=== PATIENT | female | born 1970 | race Caucasian/White ===

== ENCOUNTER 2018-10-19 11:59 | Observation (INO) | payer OTHER ==
[~2018-10-19] VITALS: Ht 167.6 cm; Wt 71.0 kg
[2018-10-19] MEDS ORDERED: KETOROLAC 15 MG/ML VIAL IVP ONE (12:00)
[2018-10-19] MEDS ORDERED: DIPHTH/TETANUS/ACEL. PERTUSSIS IM ONLY ONE ×2 (12:00→12:16)
[2018-10-19] MEDS ORDERED: L-NO1TBD6 PO (12:04)
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
[2018-10-19] MEDS ORDERED: IOPAMIDOL 76% 100 ML INFUS BTL 100 ML ONE (12:46)
[2018-10-19 12:55] LABS: PLATELET COUNT, AUTOMATED 259 K/uL (150-450)
[2018-10-19] MEDS ORDERED: HYDROmorphone HCL 2 MG/ML SDV IVP PRN (13:20)
[2018-10-19] MEDS ORDERED: ACETAMINOPHEN 325 MG TAB PO PRN (13:20)
[2018-10-19] MEDS ORDERED: EMS NS 0.9%(*) 1000 ML BAG 1,000 ML IV ONE (13:50)
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
--- NOTE | 2018-10-19 14:17 | RADIOLOGY IMAGING REPORT ---
FACILITY: [facility] PATIENT NAME: Jenifer Martinez : 1970 MR: [id number] V: [id number] EXAM DATE: ORDERING PHYSICIAN: ELDON BARBOSA TECHNOLOGIST: [place] [facility] [place] [place]: [place] : 1970 Visit/Account:[id number] Date of Sevice: 10/19/2018 CT VERTEBRA CERVICAL (NON CON) HISTORY: Trauma COMPARISON STUDIES: none TECHNIQUE: Axial images were obtained from the skull base through the upper thoracic spine without i ntravenous contrast. Coronal and sagittal reformatted images were obtained from the axial source data . One of the following dose optimization techniques was utilized in the performance of this exam: Autom ated exposure control; adjustment of the mA and/or kV according to the patient's size; or use of an i terative reconstruction technique. Specific details can be referenced in the facility's radiology C T exam operational policy. FINDINGS: There is no acute fracture of cervical spine. AP and facet alignment is appropriate. Very mild dege nerative changes are noted posteriorly C5-6. Lucency in the C5 vertebral body is well-circumscribed and likely benign. The right facial fractures are described separately. Lung apices are unremarkable. IMPRESSION: 1. No evidence for an acute fracture of the cervical spine. 2. The right-sided facial fractures are described separately. Results were called to Claudia Jefferson at 10/19/2018 2:12 PM. Report Dictated By: Ward Collier MD at 10/19/2018 1:42 PM Report E-Signed By: Ward Collier MD at 10/19/2018 2:12 PM WSN:[email or web address]
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
[2018-10-19 15:24] VITALS: BP 150/79
[2018-10-19] MEDS: KCL/D1/2NS 20 MEQ 1000 ML 1,000 ML IV PRN (18:03)
[2018-10-19] MEDS: APAP/HYDROCODONE 325/5 TAB PO PRN (18:13)
[2018-10-19 19:34] VITALS: BP 145/70
[2018-10-19 22:52] VITALS: BP 148/82
[2018-10-20 01:24] VITALS: BP 121/63
[2018-10-20] MEDS: KCL/D1/2NS 20 MEQ 1000 ML 1,000 ML IV PRN ×2 (03:17→14:58)
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
[2018-10-20 06:15] LABS: PLATELET COUNT, AUTOMATED 247 K/uL (150-450)
[2018-10-20 07:16] VITALS: BP 124/69
--- NOTE | 2018-10-20 07:58 | General Surgery Progress Note ---
Subjective Progress Notes Subjective two small emesis overnight, denies new areas of pain, her family has arrived from [facility] Physical Exam Vital Signs Date Time Temp Pulse Resp B/P (MAP) Pulse Ox O2 Delivery O2 Flow Rate FiO2 10/20/18 07:16 98 Room Air 10/20/18 07:16 97.9 101 16 124/69 (87) Intake and Output 10/20/18 07:00 Intake Total 2660 ml Output Total 300 ml Balance 2360 ml Intake Oral 320 ml IV Total 2340 ml Output Emesis 300 ml # Voids 3 General Appearance: Alert, Awake, No Acute Distress, Afebrile Neuro: No Gross deficits, Other (GCS 15) Eyes: PERRLA, Other (OD periorbital edema and ecchymosis, EOMI, VA intact and normal) Cardiovascular: Normal Rhythm & Peripheral Pulses, Regular Rate and Rhythm, No JVD Respiratory: No Respiratory Distress, Clear to Auscultation GI: Soft and Non-Tender, Other (no peritoneal s/s) Musculoskeletal: No Weakness/Pain Integumentary: Skin Intact without Lesion / Mass Psych: Alert & Oriented X3, Appropriate Mood & Affect Result Diagram: 10/20/1849 10/20/1849 Monitor Interpretation: Normal Sinus Rhythm Assessment and Plan Problems: (1) Facial fracture Status: Acute Assessment & Plan: Will need to see Facial trauma ENT surgeon as an outpt. Lacerations will be cleaned and closed in ER. Tetanus updated. 10/20/18: Stable, remains neurologically intact and hemodynamically stable. Will need to see Dr Andres in [facility] for ENT Facial trauma, discussed with loss prevention analyst ENT surgeon Dr South ENT loss prevention analyst at the [facility]. (2) Grief Status: Acute Assessment & Plan: Pt requests a Environmental Geologist to assist with calling family members. Environmental Geologist is at the bedside. Pt will be admitted for observation until family members able to come here for her. (3) Nausea & vomiting Status: Acute Assessment & Plan: Etiology likely multifactorial. Will ADAT slowly. ABD exam remains benign and admission ABD CT scan normal. Cont IVF and close observation. Time Spent: > 30 min Critical Time Spent: 1st 30-74 Minutes Exam Sepsis Risk: No Definite Risk Problem Qualifiers (1) Facial fracture: Encounter type: initial encounter Facial bone/location: unspecified site of maxillary bone Fracture type: closed Laterality: right Qualified Codes: S02.40CA - Maxillary fracture, right side, initial encounter for closed fracture ELDON BARBOSA MD Oct 20, 2018 07:58
[2018-10-20] MEDS: ONDANSETRON 4 MG/2 ML VIAL IVP PRN ×2 (08:55→14:59)
[2018-10-20] MEDS: APAP/HYDROCODONE 325/5 TAB PO PRN (10:10)
[2018-10-20 11:18] VITALS: BP 132/72
[2018-10-20 12:07] VITALS: Ht 167.6 cm; Wt 71.0 kg
[2018-10-20] MEDS ORDERED: IOPAMIDOL 76% 100 ML INFUS BTL 100 ML ONE (14:54)
[2018-10-20 15:13] VITALS: BP 126/71
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
--- NOTE | 2018-10-20 17:06 | General Surgery Progress Note ---
Subjective Progress Notes Subjective several small emesis throughout the day. No complaints of pain. No FCS. Physical Exam Vital Signs Date Time Temp Pulse Resp B/P (MAP) Pulse Ox O2 Delivery O2 Flow Rate FiO2 10/20/18 15:13 98.0 91 18 126/71 (89) 99 Room Air Intake and Output 10/20/18 07:00 Intake Total 2660 ml Output Total 300 ml Balance 2360 ml Intake Oral 320 ml IV Total 2340 ml Output Emesis 300 ml # Voids 3 # Bowel Movements 1 General Appearance: Alert, Awake, No Acute Distress GI: Soft and Non-Tender, Other (non-distended and no peritoneal s/s) Result Diagram: 10/20/18 0549 10/20/18 0549 Monitor Interpretation: Normal Sinus Rhythm Assessment and Plan Problems: (1) Facial fracture Status: Acute Assessment & Plan: Will need to see Facial trauma ENT surgeon as an outpt. Lacerations will be cleaned and closed in ER. Tetanus updated. 10/20/18: Stable, remains neurologically intact and hemodynamically stable. Will need to see Dr Andres in [facility] for ENT Facial trauma, discussed with suggestion clerk ENT surgeon Dr South ENT suggestion clerk at the [facility]. (2) Grief Status: Acute Assessment & Plan: Pt requests a Coat Baster to assist with calling family members. Coat Baster is at the bedside. Pt will be admitted for observation until family members able to come here for her. (3) Nausea & vomiting Status: Acute Assessment & Plan: Etiology likely multifactorial. Will ADAT slowly. ABD exam remains benign and admission ABD CT scan normal. Cont IVF and close observation. 10/20/18 1700: ABD remains benign, Lipase/labs normal. Repeat ABD CT negative. Follow closely. Exam Sepsis Risk: No Definite Risk Problem Qualifiers (1) Facial fracture: Encounter type: initial encounter Facial bone/location: unspecified site of maxillary bone Fracture type: closed Laterality: right Qualified Codes: S02.40CA - Maxillary fracture, right side, initial encounter for closed fracture ELDON BARBOSA MD Oct 20, 2018 17:06
[2018-10-20] MEDS: PROMETHAZINE 25 MG/ML 1 ML AMP IVP PRN (19:14)
[2018-10-20 19:42] VITALS: BP 129/66
[2018-10-20 22:35] VITALS: BP 112/58
[2018-10-21] MEDS: KCL/D1/2NS 20 MEQ 1000 ML 1,000 ML IV PRN (00:15)
[2018-10-21 02:37] VITALS: BP 143/71
[2018-10-21] MEDS ORDERED: LOR5/325 PO (07:47)
[2018-10-21] MEDS ORDERED: ONDA4TAB9 PO (07:48)
--- NOTE | 2018-10-21 07:51 | Hospitalist Depart ---
Discharge Summary Reason for Hosp/Final Diag: (1) Facial fracture Status: Acute Hospital Course & Plan: Will need to see Facial trauma ENT surgeon as an outpt. Lacerations will be cleaned and closed in ER. Tetanus updated. 10/20/18: Stable, remains neurologically intact and hemodynamically stable. Will need to see Dr Andres in [facility] for ENT Facial trauma, discussed with community organization director ENT surgeon Dr South ENT community organization director at the [facility]. 10/21/18: stable progress, outpt follow up as outlined above. (2) Grief Status: Acute Hospital Course & Plan: Pt requests a Iron Miner to assist with calling family members. Iron Miner is at the bedside. Pt will be admitted for observation until family members able to come here for her. 10/21/18: pt with machine assembler information. (3) Nausea & vomiting Status: Acute Hospital Course & Plan: Etiology likely multifactorial. Will ADAT slowly. ABD exam remains benign and admission ABD CT scan normal. Cont IVF and close observation. 10/20/18 1700: ABD remains benign, Lipase/labs normal. Repeat ABD CT negative. Follow closely. 10/21/18: repeat ABD CT negative. NV resolved overnight. Will continue soft diet as vicki. Departure Weight (Pounds): 156 Weight (Ounces): 10.0 Result Diagram: 10/21/1852310/21/18523 Condition: Improved Time Spent: > 30 min Discharge Instructions Home Meds Active Scripts Ondansetron 4 Mg Odt (ONDANSETRON 4 MG ODT) 4 Mg Tab.rapdis, 4 MG PO ONCE for 7 Days, #10 TAB Prov:ELDON BARBOSA MD 10/21/18 Hydrocodone Bit/Acetaminophen (HYDROCODON-ACETAMINOPHEN 5-325) 1 Each Tablet, 1- 2 EACH PO q6 PRN for MODERATE PAIN for 7 Days, #20 CAP Prov:ELDON BARBOSA MD 10/21/18 Reported Medications F-Sfxpeqn-Wia Estr/Ethin Estra (SEASONIQUE 0.15-0.03-0.01 TAB) 1 Each Tbdspk.3mo, 1 EACH PO QDAY 10/19/18 Venous Thromboembolism Antithrombotics Is Pt On Any Antithrombotics?: No Problem Qualifiers (1) Facial fracture: Encounter type: initial encounter Facial bone/location: unspecified site of maxillary bone Fracture type: closed Laterality: right Qualified Codes: S02.40CA - Maxillary fracture, right side, initial encounter for closed fracture ELDON BARBOSA MD Oct 21, 2018 07:51
--- NOTE | 2018-10-21 07:53 | General Surgery Progress Note ---
Subjective Progress Notes Subjective feels better, wants to go home with parents. Physical Exam Vital Signs Date Time Temp Pulse Resp B/P (MAP) Pulse Ox O2 Delivery O2 Flow Rate FiO2 10/21/18 02:37 98.9 105 16 143/71 (95) 95 Room Air Intake and Output 10/21/18 06:59 Intake Total 2185 ml Output Total 175 ml Balance 2010 ml Intake Oral 520 ml IV Total 1665 ml Output Emesis 175 ml # Voids 6 # Bowel Movements 1 # Emeses 2 General Appearance: Alert, Awake, No Acute Distress Neuro: No Gross deficits, Other (GCS 15, face symmetrical) Eyes: Other (OU ecchymosis, VA normal, EOMI full) Cardiovascular: Normal Rhythm & Peripheral Pulses, Regular Rate and Rhythm, No Edema, No JVD Respiratory: No Respiratory Distress, Clear to Auscultation Chest: No Masses GI: Soft and Non-Tender Musculoskeletal: No Weakness/Pain Extremities: Soft and Non Tender, Warm, Pulses, Perfused Integumentary: Skin Intact without Lesion / Mass Psych: Alert & Oriented X3, Appropriate Mood & Affect Result Diagram: 10/21/1852310/21/18523 Monitor Interpretation: Normal Sinus Rhythm Assessment and Plan Problems: (1) Facial fracture Status: Acute Assessment & Plan: Will need to see Facial trauma ENT surgeon as an outpt. L acerations will be cleaned and closed in ER. Tetanus updated. 10/20/18: Stable, remains neurologically intact and hemodynamically stable. Will need to see Dr Andres in [facility] for ENT Facial trauma, discussed with motion picture director ENT surgeon Dr South ENT motion picture director at the [facility]. 10/21/18: stable progress, outpt follow up as outlined above. (2) Grief Status: Acute Assessment & Plan: Pt requests a Director Airport Operations to assist with calling family members. Director Airport Operations is at the bedside. Pt will be admitted for observation until family members able to come here for her. 10/21/18: pt with table inspector information. (3) Nausea & vomiting Status: Acute Assessment & Plan: Etiology likely multifactorial. Will ADAT slowly. ABD exam remains benign and admission ABD CT scan normal. Cont IVF and close observation. 10/20/18 1700: ABD remains benign, Lipase/labs normal. Repeat ABD CT negative. Follow closely. 10/21/18: repeat ABD CT negative. NV resolved overnight. Will continue soft diet as vicki. Time Spent: > 30 min Exam Sepsis Risk: No Definite Risk Problem Qualifiers (1) Facial fracture: Encounter type: initial encounter Facial bone/location: unspecified site of maxillary bone Fracture type: closed Laterality: right Qualified Codes: S02.40CA - Maxillary fracture, right side, initial encounter for closed fracture ELDON BARBOSA MD Oct 21, 2018 07:53
[2018-10-21] MEDS ORDERED: PROM12.556 PO (07:57)
[2018-10-21 08:25] VITALS: BP 158/86
[2018-10-21] MEDS: PROMETHAZINE 25 MG/ML 1 ML AMP IVP PRN (08:33)
== END 2018-10-21 08:03 | disposition home or self-care (01) ==
LOC: ER 12:06 → INTOOBSV 13:31 → MED 13:31
PROVIDERS: ADMIT Surgery; ATTEND Surgery
DX: S02.40CA Maxillary fracture, right side, initial encounter for closed fracture (principal); F43.20 Adjustment disorder, unspecified; R11.2 Nausea with vomiting, unspecified; R00.0 Tachycardia, unspecified
CPT/HCPCS: 36415; 70450; 70486; 70498; 71045; 71260; 72125; 74177; 81001; 83690; 85025; 85027; 90471; 90715; 93005; 96361; 96374; 99284; G0378; J1885; J2405; J2550; J3480; Q9967; 82040; 82247; 82310; 82374; 82435; 82565; 82947; 84075; 84132; 84155; 84295; 84450; 84460; 84520

== ENCOUNTER → 2018-10-19 | Outpatient (CLI) | payer OTHER ==
[~2018-10-19] MED LIST: L-NO1TBD6 PO; LOR5/325 PO; ONDA4TAB9 PO; PROM12.556 PO
[2018-10-20 12:07] VITALS: BMI 25.2
== END ==
LOC: AMB 10:52
PROVIDERS: ATTEND Nurse Practitioner
DX: R51 Headache (principal); S01.81XA Laceration without foreign body of other part of head, initial encounter; S01.112A Laceration without foreign body of left eyelid and periocular area, initial encounter; V44.6XXA Car passenger injured in collision with heavy transport vehicle or bus in traffic accident, initial encounter
CPT/HCPCS: A0425; A0427